=== PATIENT | female | born 1995 | race Caucasian/White ===

== ENCOUNTER 2019-07-29 15:00 | Emergency (ER) | payer MEDICAID, SELFPAY ==
[2019-07-29 15:03] VITALS: BP 97/65; PULSE 84; RESP 16; TEMP 36.8; O2SAT 99
--- NOTE | 2019-07-29 16:33 | DI.RAD_ITS ---
EXAM: XR FOOT LT COMPLETE INDICATION: r/o foreign body L heel, tender bump bottom of left heel TECHNIQUE: 2D digital imaging was performed. FINDINGS: There is no evidence of a fracture or dislocation. No radiopaque foreign body is identified.
--- NOTE | 2019-07-29 16:34 | ED.GENADUL_ITS ---
Discharge Plan Disposition Patient Disposition: HOME Condition: Stable Discharge Details Chief Complaint: RashLesion Clinical Impression: Warts of foot Primary Care Provider: None,None ED Provider: Zeinab Fraser Home Meds and New Rx's Prescriptions: Continued levonorgestrel-ethinyl estrad [Aviane] 1 EACH tablet 1 tab-cap PO DAILY Qty: 3 RF: 3 Discharge Instructions Instructions: Plantar Wart (ED) Additional Instructions: Alternate Tylenol and Motrin as needed and directed for pain. Use [id number] Compound W to help with treating possible wart. You will receive a call from care management regarding a follow-up appointment with a primary care doctor. Return to the emergency department if you develop any worsening or new concerning symptoms. Discharge Data Discharge Physician: Zeinab Fraser Medical Decision Making 24-year-old female presents with tender bump on the bottom of her left heel for the past year, getting progressively worse in pain over the past few months. She states she is having difficulty with weightbearing due to pain. Denies any known injury or foreign body. She denies fever. Appears consistent likely with a wart. Patient offered x-ray and would like to obtain this to rule out foreign body. She was given a dose of Tylenol. X-ray negative. Discussed with patient that this is likely a plantar wart. She is advised to use [id number] Compound W as directed. She was placed on the care management list to arrange for follow-up appoint with her primary care doctor to establish care and for referral to podiatry if symptoms persist or worsen. She is advised to return here with any concerns. Medical Records Medical records reviewed: Yes I reviewed the patient's medical records. Imaging Data Radiologic Study: Radiologist's impression: XR Left Foot Complete Exam date and time: 07/29/2019 4:34 PM Clinical history: 24 years old, female; Other: R/O foreign body lt heel TECHNIQUE: Imaging protocol: XR Left foot. Views: 3 or more views. COMPARISON: No relevant prior studies available. FINDINGS: Bones/joints: No acute fracture. 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 Soft tissues: No evidence of radiopaque foreign body. IMPRESSION: 1. No evidence of radiopaque foreign body. 2. No acute fracture. HPI General Mode of arrival: ambulatory . Date/Time Provider Initiated Documentation: 07/29/19 15:26 . Limitations to Documentation: no limitations . Information obtained by: patient . HPI Narrative: Patient is a 24-year-old fema le presents with a tender bump on the bottom of her left heel for the past year, getting progressively worse over the past few months. She states she has noticed recently has become more painful and has difficulty with weightbearing. She is unsure if it has increased in size. She denies any known foreign body, fever or injury. Related Data Home Medications Medication Instructions Recorded Confirmed levonorgestrel-ethinyl estrad 1 tab-cap PO DAILY #3 pack 03/06/16 07/29/19 [Aviane] Allergies Allergy/AdvReac Type Severity Reaction Status Date / Time No Known Allergies Allergy Unverified 07/29/19 15:09 General Stated Complaint: RashLesion MARK: 4 Review of Systems Review of Systems ROS Unobtainable: All systems reviewed & are unremarkable except as noted in HPI and below PFSH Medical History No significant past medical history (Acute) Surgical History Appendectomy age 15 yrs Tonsillectomy and adenoidectomy age 7 yrs Family History Sister Diabetes Grandmother Diabetes Myocardial infarction PACEMAKER Neoplasm STOMACH Breast cancer Stroke Mother Depression Father No problems noted. Maternal Aunt Diabetes Sister Depression Sister No problems noted. Sister No problems noted. Grandmother Stroke Social History Smoking/Tobacco Use Status: Never Alcohol Intake: never Drug use: Never Do you feel safe at home: Yes Do you feel safe in your relationship?: Yes Exam Const General: cooperative, healthy appearing and no acute distress HENMT Head: normal to inspection Mouth: oral mucosae normal Eyes General: appearance normal, both eyes and all related structures Neck Neck: normal visual inspection Resp Effort & Inspection: normal respiratory effort and able to speak in complete sentences Cardio Rate: regular rate Skin General skin exam: no rashes or lesions noted Neuro General: alert, awake and oriented x3 Motor: muscle tone normal throughout Extrem Ankle/foot/toe images: 1. 4x4m tender indurated papule which appears skin colored c/w hyperproliferation of epidermis or wart located on L heel. There appears to be multiple 1mm dark pinpoint olmedo in center of papule which may be c/w seeding of wart. There is no surrounding erythema, fluctuance, drainage or bleeding. Psych Appearance: grossly normal Affect: normal affect Course Vital Signs Vital signs: Vital Signs Temperature 98.2 F 07/29/19 15:03 Pulse 84 07/29/19 15:03 Respiratory Rate 16 07/29/19 15:03 Blood Pressure 97/65 L 07/29/19 15:03 Pulse Oximetry 99 07/29/19 15:03 Temperature 98.2 F 07/29/19 15:03 Temperature Source Temporal Artery Scan 07/29/19 15:03 Pulse 84 07/29/19 15:03 Respiratory Rate 16 07/29/19 15:03 Respiratory Effort Non-Labored 07/29/19 15:08 Blood Pressure 97/65 L 07/29/19 15:03 Blood Pressure Position Sitting 07/29/19 15:03 Pulse Oximetry 99 07/29/19 15:03 Oxygen Delivery Method Room Air 07/29/19 15:03 Oxygen Flow Rate 0 07/29/19 15:03 Pain Level 2 07/29/19 15:03
[2019-07-29] MEDS: Acetaminophen 325 MG TAB 650 MG PO (16:43)
--- NOTE | 2019-07-29 17:41 | DI.VRAD_ITS ---
PROCEDURE INFORMATION: Exam: XR Left Foot Complete Exam date and time: 07/29/2019 4:34 PM Clinical history: 24 years old, female; Other: R/O foreign body lt heel TECHNIQUE: Imaging protocol: XR Left foot. Views: 3 or more views. COMPARISON: No relevant prior studies available. FINDINGS: Bones/joints: No acute fracture. 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 Soft tissues: No evidence of radiopaque foreign body. IMPRESSION: 1. No evidence of radiopaque foreign body. 2. No acute fracture. Dictated and Authenticated by: Kyle Morse MD. Ordering:ADRIENNE Arriola MD
== END 2019-07-29 18:05 | disposition home or self-care (01) ==
PROVIDERS: Emergency Provider Physician Assistant
DX: B07.9 Viral wart, unspecified (principal)
CPT/HCPCS: 99283; 73630; 99282